=== PATIENT | female | born 1960 | race Two or more races ===

== ENCOUNTER 2022-05-18 13:18 | Emergency (ER) | payer OTHER ==
[2022-05-18 14:05] VITALS: BP 126/69; PULSE 78; RESP 18; TEMP 97.8; BMI 38.2
[2022-05-18] MEDS ORDERED: ACETAMINOPHEN 1000 MG/100 ML BAG IVPB ONE (14:24)
[2022-05-18] MEDS ORDERED: ACETAMINOPHEN INJECTION 100 ML IVPB ONE (15:31)
[2022-05-18 15:40] LABS: BASO % 0.4 % (0-2.0); EOS % 1.3 % (0-4.5); HEMATOCRIT 40.8 % (32.4-45.2); HEMOGLOBIN 13.9 GM/dL (10.7-15.3); LYMPH % 23.9 % (8-40); MCH 30.1 pg (25.7-33.7); MEAN CELL VOLUME 88.5 fl (80-96); MEAN PLT VOLUME 9.2 fl (7.5-11.1); MONO % 6.5 % (3.8-10.2); NEUT % 67.9 % (42.8-82.8); PLATELET COUNT 197 10^3/uL (134-434); RBC 4.61 M/mm3 (3.60-5.2); RDW 14.1 % (11.6-15.6)
[2022-05-18 15:45] LABS: INR 1.05 (0.83-1.09); PROTHROMBIN TIME (PATIENT) 12.1 SEC (9.7-13.0)
[2022-05-18 15:48] LABS: ACTIVATED PTT 30.9 SECONDS (25.2-36.5)
[2022-05-18 16:04] LABS: CALCIUM 8.5 mg/dL (8.5-10.1)
[2022-05-18 16:05] LABS: ALBUMIN 3.8 g/dl (3.4-5.0); BLOOD UREA NITROGEN 24.5 mg/dL (7-18)
[2022-05-18 16:08] LABS: CREATININE 0.7 mg/dL (0.55-1.3)
[2022-05-18 16:09] LABS: TOT PROT 7.1 g/dl (6.4-8.2)
[2022-05-18 16:10] LABS: BILIRUBIN,TOTAL 0.4 mg/dL (0.2-1)
== END 2022-05-18 18:16 | disposition home or self-care (01) ==
LOC: JER 13:18
PROC: 3E033GC Introduction of Other Therapeutic Substance into Peripheral Vein, Percutaneous Approach (ICD-10-PCS; principal; 2022-05-18)
DX: R07.89 Other chest pain (principal)
CPT/HCPCS: 36415; 71046-TC-FY; 80053; 84484; 85025; 85610; 85730; 93005; 93010; 99285-25